=== PATIENT | female | born 1985 | race Hispanic/Latino ===

== ENCOUNTER 2018-03-11 19:42 | Emergency (ER) | payer OTHER ==
--- NOTE | 2018-03-11 20:48 | RAD REPORT ---
EXAM DESCRIPTION: CT - Head Brain Wo Cont - 03/11/2018 8:43 pm CLINICAL HISTORY: HEADACHE COMPARISON: No comparisons TECHNIQUE: All CT scans are performed using dose optimization technique as appropriate and may inclu de automated exposure control or mA/KV adjustment according to patient size. FINDINGS: No intracranial hemorrhage, hydrocephalus or extra-axial fluid collection.No areas of brai n edema or evidence of midline shift. The paranasal sinuses and mastoids are clear. The calvarium is intact. IMPRESSION: No acute intracranial abnormality.
--- NOTE | 2018-03-11 21:15 | ER ---
Nurse's Notes [facility] Name: Megan Corley Age: 33 yrs Sex: Female : 1985 Arrival Date: 03/11/2018 Time: 19:43 Bed 18 Private MD: Diagnosis: Headache Presentation: 03/11 20:10 Presenting complaint: Patient states: Reports headache to top of head that started 1 aj hour ago. Patient reports taking Aleve 10 min CONTAINER WASHER. Reports nausea. Transition of care: patient was not received from another setting of care. Onset of symptoms was March 11, 2018. Risk Assessment: Do you want to hurt yourself or someone else? Patient reports no desire to harm self or others. Initial Sepsis Screen: Does the patient meet any 2 criteria? No. Patient's initial sepsis screen is negative. Does the patient have a suspected source of infection? No. Patient's initial sepsis screen is negative. Care prior to arrival: None. 20:10 Method Of Arrival: Ambulatory aj 20:10 Acuity: SCOOBY 3 aj Triage Assessment: 20:11 General: Appears in no apparent distress. uncomfortable, Behavior is calm, cooperative, aj appropriate for age. Pain: Complains of pain in face. Neuro: Level of Consciousness is awake, alert, obeys commands, Oriented to person, place, time, situation, Appropriate for age Kelp Or Seagrass Gatherer are equal bilaterally Moves all extremities. Full function Gait is steady, Speech is normal, Facial symmetry appears normal, Reports headache. Respiratory: Airway is patent Respiratory effort is even, unlabored, Respiratory pattern is regular, symmetrical. GI: Reports nausea. Derm: Skin is intact, is healthy with good turgor, Skin is pink, warm \T\ dry. normal. IMPROVEMENT INTERN: 20:11 LMP N/A - IUD aj Historical: - Allergies: 20:11 No Known Allergies; aj - Home Meds: 20:11 None [Active]; aj - PMHx: 20:11 None; aj - PSHx: 20:11 None; aj - Immunization history:: Adult Immunizations up to date. - Social history:: Smoking status: Patient/guardian denies using tobacco. - Ebola Screening: : Patient negative for fever greater than or equal to 101.5 degrees Fahrenheit, and additional compatible Ebola Virus Disease symptoms Patient denies exposure to infectious person Patient denies travel to an Ebola-affected area in the 21 days before illness onset No symptoms or risks identified at this time. - Family history:: not pertinent. - Hospitalizations: : No recent hospitalization is reported. Screenin:15 Abuse screen: Denies threats or abuse. Nutritional screening: No deficits noted. ea Tuberculosis screening: No symptoms or risk factors identified. Fall Risk None identified. Assessment: 21:15 General: Appears in no apparent distress. Behavior is calm, cooperative, appropriate ea for age. Pain: Complains of pain in top of head Pain does not radiate. Pain currently is 6 out of 10 on a pain scale. Quality of pain is described as aching. Neuro: Level of Consciousness is awake, alert, obeys commands, Oriented to person, place, time, situation. Cardiovascular: Patient's skin is warm and dry. Respiratory: Airway is patent Respiratory effort is even, unlabored, Respiratory pattern is regular, symmetrical. GI: No signs and/or symptoms were reported involving the gastrointestinal system. : No signs and/or symptoms were reported regarding the genitourinary system. EENT: No signs and/or symptoms were reported regarding the EENT system. Derm: Skin is pink, warm \T\ dry. Musculoskeletal: Circulation, motion, and sensation intact. 21:26 Reassessment: Patient and/or family updated on plan of care and expected duration. Pain ea level reassessed. Patient is alert, oriented x 3, equal unlabored respirations, skin warm/dry/pink. Discharge instructions given to patient, verbalized the understanding of instruction. Vital Signs: 20:11 BP 126 / 81; Pulse 87; Resp 16; Temp 98.3; Pulse Ox 99% on R/A; Weight 88.45 kg; Height aj 5 ft. 1 in. (154.94 cm); 21:20 BP 122 / 78; Pulse 80; Resp 18; Temp 98(O); Pulse Ox 99% ; ea 20:11 Body Mass Index 36.84 (88.45 kg, 154.94 cm) aj [place] Coma Score: 21:13 Eye Response: spontaneous(4). Verbal Response: oriented(5). Motor Response: obeys rn commands(6). Total: 15. ED Course: 19:43 Patient arrived in ED. ds1 20:10 Triage completed. aj 20:11 Arm band placed on right wrist. Patient placed in waiting room, Patient notified of aj wait time. CT ordered. 20:[address] via wheelchair. 2 20:42 CT completed. Patient tolerated procedure well. Patient moved back from CT. wi 20:42 CT Head Brain wo Cont In Process Unspecified. EDMS 21:00 Negrito Alvarez MD is Attending Physician. rn 21:15 Oni Luu MD is Referral Physician. rn 21:15 Patient has correct armband on for positive identification. Bed in low position. Call ea light in reach. 21:23 Sarita Anders, RN is Primary Nurse. ea 21:25 No provider procedures requiring assistance completed. Patient did not have IV access ea during this emergency room visit. Administered Medications: No medications were administered Outcome: 21:15 Discharge ordered by . rn 21:25 Discharged to home ambulatory, with family. ea 21:25 Condition: good 21:25 Discharge instructions given to patient, Instructed on discharge instructions, follow up and referral plans. Demonstrated understanding of instructions, follow-up care. 21:27 Patient left the ED. ea Signatures: Dispatcher [employer] EDID Charmaine Curtis, RN Olimpia Butler ds1 Negrito Alvarez MD MD rn Jordan, Nathan nj McGuire, Victoria 2 Sarita Anders, RN TENNILLE to
--- NOTE | 2018-03-11 21:15 | EDPHYS ---
Physician Documentation [facility] Name: Megan Corley Age: 33 yrs Sex: Female : 1985 Arrival Date: 03/11/2018 Time: 19:43 Bed 18 Private MD: ED Physician Negrito Alvarez HPI: 03/11 21:11 This 33 yrs old Unknown Female presents to ER via Ambulatory with complaints of rn Migraine. 21:11 The patient complains of pain to the top of head. The patient describes the headache as rn aching. 21:11 Onset: The symptoms/episode began/occurred 1 hour(s) ago. Severity of symptoms: At its rn worst the pain was moderate, in the emergency department the pain has improved. The patient has experienced similar episodes in the past. Reports gets headaches somewhat frequently, hangs around for a month then goes away, returns in 6months to a year, this one started an hour ago, has improved since arrival, never has had imaging, hasn't seen neurology, no fever/trauma/neck pain or stiffness, no vomiting. . 21:13 Associated signs and symptoms: Pertinent negatives: altered mental status, dizziness, rn fever, neck stiffness, paresthesias, rash, vision changes, vision loss, vomiting, weakness, vertigo. LOCUM TENENS: 20:11 LMP N/A - IUD aj Historical: - Allergies: 20:11 No Known Allergies; aj - Home Meds: 20:11 None [Active]; aj - PMHx: 20:11 None; aj - PSHx: 20:11 None; aj - Immunization history:: Adult Immunizations up to date. - Social history:: Smoking status: Patient/guardian denies using tobacco. - Ebola Screening: : Patient negative for fever greater than or equal to 101.5 degrees Fahrenheit, and additional compatible Ebola Virus Disease symptoms Patient denies exposure to infectious person Patient denies travel to an Ebola-affected area in the 21 days before illness onset No symptoms or risks identified at this time. - Family history:: not pertinent. - Hospitalizations: : No recent hospitalization is reported. ROS: 21:13 Constitutional: Negative for fever, chills, and weight loss, Eyes: Negative for injury, rn pain, redness, and discharge, Neck: Negative for injury, pain, and swelling, Cardiovascular: Negative for chest pain, palpitations, and edema, Respiratory: Negative for shortness of breath, cough, wheezing, and pleuritic chest pain, Abdomen/GI: Negative for abdominal pain, vomiting, diarrhea, and constipation, : Negative for injury, bleeding, discharge, and swelling, MS/Extremity: Negative for injury and deformity, Skin: Negative for injury, rash, and discoloration, Neuro: Negative for weakness, numbness, tingling, and seizure. Exam: 21:13 Constitutional: This is a well developed, well nourished patient who is awake, alert, rn and in no acute distress. Head/Face: Normocephalic, atraumatic. Eyes: Pupils equal round and reactive to light, extra-ocular motions intact. Lids and lashes normal. Conjunctiva and sclera are non-icteric and not injected. Cornea within normal limits. Periorbital areas with no swelling, redness, or edema. ENT: MMM, no oral lesions Neck: Trachea midline, no thyromegaly or masses palpated, and no cervical lymphadenopathy. Supple, full range of motion without nuchal rigidity, or vertebral point tenderness. No Meningismus. Skin: Warm, dry with normal turgor. Normal color with no rashes, no lesions, and no evidence of cellulitis. MS/ Extremity: Pulses equal, no cyanosis. Neurovascular intact. Full, normal range of motion. Equal circumference. Neuro: Awake and alert, GCS 15, oriented to person, place, time, and situation. Cranial nerves II-XII grossly intact. Motor strength 5/5 in all extremities. Sensory grossly intact. Cerebellar exam normal. Normal gait. Vital Signs: 20:11 BP 126 / 81; Pulse 87; Resp 16; Temp 98.3; Pulse Ox 99% on R/A; Weight 88.45 kg; Height aj 5 ft. 1 in. (154.94 cm); 21:20 BP 122 / 78; Pulse 80; Resp 18; Temp 98(O); Pulse Ox 99% ; ea 20:11 Body Mass Index 36.84 (88.45 kg, 154.94 cm) aj [place] Coma Score: 21:13 Eye Response: spontaneous(4). Verbal Response: oriented(5). Motor Response: obeys rn commands(6). Total: 15. MDM: 21:00 Patient medically screened. rn 21:13 Differential diagnosis: cluster headache, hypertensive headache, migraine, neoplasm, rn tension headache, vasomotor headache. Data reviewed: vital signs, nurses notes, radiologic studies, CT scan, and as a result, I will discharge patient. Counseling: I had a detailed discussion with the patient and/or guardian regarding: the historical points, exam findings, and any diagnostic results supporting the discharge/admit diagnosis, radiology results, the need for outpatient follow up, to return to the emergency department if symptoms worsen or persist or if there are any questions or concerns that arise at home. Special discussion: I discussed with the patient/guardian in detail that at this point there is no indication for admission to the hospital. It is understood, however, that if the symptoms persist or worsen the patient needs to return immediately for re-evaluation. Based on the history and exam findings, there is no indication for further emergent testing or inpatient evaluation. I discussed with the patient/guardian the need to see the neurologist for further evaluation of the symptoms. 03/11 20:12 Order name: CT Head Brain wo Cont; Complete Time: 21:01 aj Administered Medications: No medications were administered Disposition: 03/11/18 21:15 Discharged to Home. Impression: Headache. - Condition is Stable. - Discharge Instructions: General Headache Without Cause, Migraine Headache. - Medication Reconciliation Form, Thank You Letter, Antibiotic Education, Prescription Opioid Use form. - Follow up: Oni Luu MD; When: As needed; Reason: Recheck today's complaints, Re-evaluation by your physician. - Problem is an ongoing problem. - Symptoms have improved. Signatures: Dispatcher [employer] EDCharmaine Adamson RN RN aj Nieto, Roman, MD MD rn Antunez, Elena, RN RN ea Corrections: (The following items were deleted from the chart) 21:15 21:15 03/11/2018 21:15 Discharged to Home. Impression: Headache. Condition is Stable. rn Forms are Medication Reconciliation Form, Thank You Letter, Antibiotic Education, Prescription Opioid Use. Follow up: Private Physician; When: As needed; Reason: Recheck today's complaints, Re-evaluation by your physician. Problem is an ongoing problem. Symptoms have improved. rn 21:27 21:15 03/11/2018 21:15 Discharged to Home. Impression: Headache. Condition is Stable. ea Forms are Medication Reconciliation Form, Thank You Letter, Antibiotic Education, Prescription Opioid Use. Follow up: Oni Luu; When: As needed; Reason: Recheck today's complaints, Re-evaluation by your physician. Problem is an ongoing problem. Symptoms have improved. rn
== END 2018-03-11 21:27 | disposition home or self-care (01) ==
LOC: ER 19:42
DX: R51 Headache (principal)
CPT/HCPCS: 70450; 99284

== ENCOUNTER 2020-11-19 14:11 | Inpatient (IN) | payer OTHER, SELFPAY ==
[2020-11-19 15:39] LABS: Absolute Lymphocytes (CBC) 0.4 K/uL (0.7-4.9); Basophils % 0.4 % (0-1.3); Hematocrit 38.1 % (36.0-45.0); Lymphocytes % 5.8 % (15.3-44.8); MPV 8.5 fL (7.6-11.3); RBC Red Blood Cell Count 4.32 M/uL (3.86-4.86)
[2020-11-19] MEDS ORDERED: IPRATROPIUM BROM 0.5MG/2.5ML ONE (15:48)
[2020-11-19] MEDS ORDERED: ALBUTEROL 2.5 MG/3 ML NEB SOL ONE (15:48)
[2020-11-19] MEDS ORDERED: ONDANSETRON 4 MG/2 ML VIAL ONE (15:48)
[2020-11-19] MEDS ORDERED: NA CHLORIDE 0.9% 1,000 ML ONE ×2 (15:48→17:43)
[2020-11-19] MEDS ORDERED: METHYLPREDNISOLONE 125 MG INJ ONE (15:48)
[2020-11-19 15:52] LABS: Protime INR 1.34
[2020-11-19 16:16] LABS: ALT/SGPT 63 U/L (12-78); AST/SGOT 68 U/L (15-37); Albumin 2.8 g/dL (3.4-5.0); Alkaline Phosphatase 125 U/L (45-117); BUN Blood Urea Nitrogen 6 mg/dL (7-18); Bicarbonate 27 mmol/L (21-32); Bilirubin Direct 0.4 mg/dL (0-0.2); Bilirubin Total 1.1 mg/dL (0.2-1.0); Glucose Level 113 mg/dL (74-106); Lipase 81 U/L (73-393); Potassium 3.4 mmol/L (3.5-5.1); Protein, Total 7.3 g/dL (6.4-8.2); Sodium Level 136 mmol/L (136-145); Troponin (Emerg Dept Use Only) < 0.02 ng/mL (0.0-0.045)
[2020-11-19 16:30] LABS: Ferritin 570.6 ng/mL (8-388)
--- NOTE | 2020-11-19 16:56 | RAD REPORT ---
EXAM DESCRIPTION: RAD - Chest Single View - 11/19/2020 3:50 pm CLINICAL HISTORY: SOBCOVID positive COMPARISON: None TECHNIQUE: AP portable chest image was obtained 11/19/2020 3:50 pm . FINDINGS: Lung volumes are low and there is substantial respiratory motion degradation. Bilateral ai rspace opacification is present. This bilateral pneumonia pattern is commonly seen with COVID-19 pneu monia. Trachea midline. Heart and vasculature are normal. No measurable pleural effusion and no pneum othorax. No acute bony abnormality seen. No acute aortic findings suspected. IMPRESSION: Bilateral COVID-19 pneumonia
[2020-11-19 17:05] LABS: Urine Blood 1+ (Negative); Urine Glucose Negative (Negative); Urine Protein Negative (Negative); Urine pH 6.5 (5.0-7.0)
[2020-11-19 17:57] LABS: Urine Bacteria <20 /HPF (<20); Urine RBC <5 /HPF (NONE SEEN)
[2020-11-19 18:04] LABS: Arterial Blood Carboxyhemoglob 1.2 % (0-1.5); Blood Gas Oxyhemoglobin 90.6 % (94-97); Blood O2 Saturation 92.5 % (92-98.5)
--- NOTE | 2020-11-19 18:44 | ER ---
Nurse's Notes [facility] Name: Megan Corley Age: 35 yrs Sex: Female : 1985 Arrival Date: 11/19/2020 Time: 14:12 Bed 25 Private MD: Diagnosis: Pneumonia due to SARS-associated coronavirus Presentation: 11/19 14:49 Chief complaint: Patient states: Covid+ 11/14/2020. S/S started 11/12/2020. Symptoms ca1 getting worse, cough, congestion, chills, N/V/D, fever, headaches. SOB getting worse. Coronavirus screen: Client denies travel out of the [place] in the last 14 days. Client reports previous positive COVID test result. Date of collection: November 14, 2020 Staff notified of need for isolation. Ebola Screen: Patient negative for fever greater than or equal to 101.5 degrees Fahrenheit, and additional compatible Ebola Virus Disease symptoms Patient denies exposure to infectious person. Patient denies travel to an Ebola-affected area in the 21 days before illness onset. No symptoms or risks identified at this time. Initial Sepsis Screen: Does the patient meet any 2 criteria? RR > 20 per min. HR > 90 bpm. Yes Does the patient have a suspected source of infection? Yes: Productive cough/pneumonia. Risk Assessment: Do you want to hurt yourself or someone else? Patient reports no desire to harm self or others. Onset of symptoms was November 19, 2020. 14:49 Method Of Arrival: Wheelchair ca1 14:49 Acuity: CSOOBY 2 ca1 Historical: - Allergies: 14:53 No Known Allergies; ca1 - Home Meds: 14:53 None [Active]; ca1 - PMHx: 14:53 None; ca1 - PSHx: 14:53 None; ca1 - Immunization history:: Client reports having NOT received the Covid vaccine. Flu vaccine is not up to date. - Social history:: Smoking status: Patient denies any tobacco usage or history of. Screenin:09 Abuse screen: Denies threats or abuse. Denies injuries from another. Nutritional zb screening: No deficits noted. Tuberculosis screening: No symptoms or risk factors identified. Fall Risk None identified. Assessment: 15:30 General: Appears distressed, uncomfortable, Reports chills for 2-3 days, fever for > 3 zb days, feeling ill for > 3 days, fatigue for >3 days. Neuro: Level of Consciousness is awake, alert, obeys commands, Oriented to person, place, time, situation. Cardiovascular: Reports fatigue, lightheadedness, nausea, shortness of breath, syncope, Capillary refill < 3 seconds in bilateral fingers Patient's skin is warm and dry. Respiratory: Airway is patent Respiratory effort is even, unlabored, Respiratory pattern is tachypnea Breath sounds are diminished bilaterally. Onset: The symptoms/episode began/occurred gradually, the patient has moderate shortness of breath. GI: Abdomen is round non-distended, Bowel sounds present X 4 quads. Reports diarrhea, nausea. : No signs and/or symptoms were reported regarding the genitourinary system. EENT: Oral mucosa is moist. Throat is clear. Derm: Skin is intact, is healthy with good turgor, Skin is diaphoretic, Skin is pale, Skin temperature is hot. Musculoskeletal: Circulation, motion, and sensation intact. Range of motion: intact in all extremities. 16:17 Reassessment: Patient appears in no apparent distress at this time. Patient and/or zb family updated on plan of care and expected duration. Pain level reassessed. notified ECP of blood pressure. will wait to see if bolus adjust blood pressure. no new orders at this time. patient remains on neb tx at this time. will continue to monitor. 16:40 Reassessment: patient desating on NC changed to non-rebreather. zb 17:40 Reassessment: patient blood pressure low notified ECP. addition bolus ordered. zb 18:22 Reassessment: RT applying high flow on patient. zb 18:25 Reassessment: 40 L and 100% on High Flow. zb 19:00 Reassessment: hospitalist at bedside. Vital Signs: 14:49 BP 93 / 61; Pulse 114; Resp 22 S; Temp 100.1(O); Pulse Ox 86% on R/A; Weight 88.45 kg; ca1 Height 5 ft. 1 in. (154.94 cm) (R); Pain 2/10; 16:05 BP 90 / 47; Pulse 101; Resp 27; Pulse Ox 95% on 15% Nebulizer Mask; Pain 0/10; zb 17:29 BP 88 / 52; Pulse 105; Resp 30; Temp 98.9(O); Pulse Ox 95% on 15% Non-rebreather mask; zb 17:43 BP 87 / 47; Pulse 100; Resp 31; Pulse Ox 98% on 15% Non-rebreather mask; zb 18:23 BP 92 / 52; Pulse 98; Resp 30; Pulse Ox 96% 100% ; zb 19:00 BP 93 / 54; Pulse 93; Resp 28; Pulse Ox 96% 100% ; zb 19:41 BP 96 / 52; Pulse 87; Resp 25; Pulse Ox 95% 100% ; zb 14:49 Body Mass Index 36.84 (88.45 kg, 154.94 cm) ca1 ED Course: 14:12 Patient arrived in ED. as 14:52 Triage completed. ca1 14:53 Arm band placed on right wrist. ca1 14:56 Gómez Lua NP is PHCP. pm1 14:57 Genesis Watkins MD is Attending Physician. pm1 15:15 Inserted saline lock: 20 gauge in left antecubital area, using aseptic technique. Blood zb collected. 15:23 Cyndi Rawls, RN is Primary Nurse. zb 15:30 Patient has correct armband on for positive identification. Placed in gown. Bed in low zb position. Call light in reach. Side rails up X 1. Adult w/ patient. nuclear monitoring technician on. Pulse ox on. NIBP on. Door closed. Noise minimized. Verbal reassurance given. 15:40 Initial lab(s) drawn, by me, sent to lab. First set of blood cultures drawn Second set zb of blood cultures drawn by me, EKG done, by ED staff, reviewed by Gómez Lua NP. 15:50 CXR XRAY In Process Unspecified. EDMS 17:17 Radiology exam delayed due to patient receiving breathing treatment at this time. RN mw3 states that the pt's O2 sat dropped, informed MD, waiting for RT to do high flow )2 and then see if the pt can be put on non-rebreather for CT scan. 18:43 Fei Alvarez MD is Hospitalizing Provider. pm1 Administered Medications: 15:43 Drug: NS 0.9% 1000 ml Route: IV; Rate: 1000 ml; Site: left antecubital; zb 16:20 Follow up: Response: No adverse reaction; IV Status: Completed infusion; IV Intake: zb 1000ml 15:43 Drug: Zofran (Ondansetron) 4 mg Route: IVP; Site: left antecubital; zb 20:06 Follow up: Response: No adverse reaction; Nausea is decreased zb 15:43 Drug: SOLU-Medrol (methylPrednisoLONE) 125 mg Route: IVP; Site: left antecubital; zb 16:20 Follow up: Response: No adverse reaction zb 16:00 Drug: Albuterol - atroVENT (ipratropium) (3:1) (2.5 mg - 0.5 mg) 3 ml Route: Nebulizer; zb 16:20 Follow up: Response: No adverse reaction; No change in condition zb 17:28 Drug: NS 0.9% 1000 ml Route: IV; Rate: 125 ml/hr; Site: left antecubital; zb 20:06 Follow up: Response: No adverse reaction; IV Status: Infusion continued upon admission; zb IV Intake: 250ml 17:42 Drug: NS 0.9% 1000 ml Route: IV; Rate: 1000 ml; Site: left antecubital; zb 20:01 Follow up: Response: No adverse reaction; IV Status: Completed infusion; IV Intake: zb 1850ml Intake: 16:20 IV: 1000ml; Total: 1000ml. zb 20:01 IV: 1850ml; Total: 2850ml. zb 20:06 IV: 250ml; Total: 3100ml. zb Outcome: 18:43 Decision to Hospitalize by Provider. pm1 11/20 01:10 Patient left the ED. mw2 Signatures: Dispatcher [employer] EDMS Mag Galvan Patrick, NP MEDICAL RECORD LIBRARIAN pm1 Jose G Redman mw2 Marika Ladd mw3 Pallavi Kaye RN RN ca1 Cyndi Rawls RN RN zb Corrections: (The following items were deleted from the chart) 11/19 14:52 14:49 Initial Sepsis Screen: Does the patient meet any 2 criteria? No. Patient's ca1 initial sepsis screen is negative. Does the patient have a suspected source of infection? No. Patient's initial sepsis screen is negative. ca1 14:52 14:49 BP 93 / 61; Pulse 114bpm; Resp 20bpm; Pulse Ox 86% RA; Temp 100.1F Oral; 88.45 ca1 kg; Height 5 ft. 1 in. Reported; BMI: 36.8; Pain 2/10; ca1 17:27 14:49 Coronavirus screen: Client denies travel out of the [place] in the last 14 days. ca1 Client reports previous positive COVID test result. Date of collection: November 14, 2020 ca1 20:06 20:02 Response: No adverse reaction; No change in condition zb zb
--- NOTE | 2020-11-19 18:44 | EDPHYS ---
Physician Documentation [facility] Name: Megan Corley Age: 35 yrs Sex: Female : 1985 Arrival Date: 11/19/2020 Time: 14:12 Bed 25 Private MD: ED Physician Genesis Watkins HPI: 11/19 15:06 This 35 yrs old Female presents to ER via Wheelchair with complaints of Cough, pm1 Congestion, Shortness Of Breath - covid+. 15:06 The patient has shortness of breath at rest. Onset: The symptoms/episode began/occurred pm1 1 week(s) ago. Duration: The symptoms are continuous, and are steadily getting worse. The patient's shortness of breath is aggravated by exertion. Associated signs and symptoms: Pertinent positives: Cough, Fever, N/V/D, Headache, Chest pain. Severity of symptoms: in the emergency department the symptoms are worse. The patient has not experienced similar symptoms in the past. Patient diagnosed with COVID on 11/14 with shortness breath worsening. Chest present with deep breathing and coughing. Historical: - Allergies: 14:53 No Known Allergies; ca1 - Home Meds: 14:53 None [Active]; ca1 - PMHx: 14:53 None; ca1 - PSHx: 14:53 None; ca1 - Immunization history:: Client reports having NOT received the Covid vaccine. Flu vaccine is not up to date. - Social history:: Smoking status: Patient denies any tobacco usage or history of. ROS: 15:06 Eyes: Negative for injury, pain, redness, and discharge, ENT: Negative for injury, pm1 pain, and discharge, Neck: Negative for injury, pain, and swelling. 15:06 Back: Negative for injury and pain, : Negative for injury, bleeding, discharge, and swelling, MS/Extremity: Negative for injury and deformity, Skin: Negative for injury, rash, and discoloration, Neuro: Negative for headache, weakness, numbness, tingling, and seizure. 15:06 Constitutional: Positive for body aches, chills, fever. 15:06 Cardiovascular: Positive for chest pain, with cough. 15:06 Respiratory: Positive for cough, shortness of breath. 15:06 Abdomen/GI: Positive for nausea, vomiting, and diarrhea, Negative for abdominal pain. Exam: 15:06 Head/Face: Normocephalic, atraumatic. pm1 15:06 Eyes: Pupils equal round and reactive to light, extra-ocular motions intact. Lids and lashes normal. Conjunctiva and sclera are non-icteric and not injected. Cornea within normal limits. Periorbital areas with no swelling, redness, or edema. ENT: Nares patent. No nasal discharge, no septal abnormalities noted. Tympanic membranes are normal and external auditory canals are clear. Oropharynx with no redness, swelling, or masses, exudates, or evidence of obstruction, uvula midline. Mucous membranes moist. Neck: Trachea midline, no thyromegaly or masses palpated, and no cervical lymphadenopathy. Supple, full range of motion without nuchal rigidity, or vertebral point tenderness. No Meningismus. 15:06 Back: No spinal tenderness. No costovertebral tenderness. Full range of motion. Skin: Warm, dry with normal turgor. Normal color with no rashes, no lesions, and no evidence of cellulitis. MS/ Extremity: Pulses equal, no cyanosis. Neurovascular intact. Full, normal range of motion. 15:06 Constitutional: The patient appears alert, awake, comfortable, non-diaphoretic, non-toxic, well developed, well hydrated, well groomed, well nourished, obviously ill. 15:06 Chest/axilla: Inspection: normal, Palpation: tenderness, of the mid-sternal area. 15:06 Cardiovascular: Rate: tachycardic, Rhythm: regular, Pulses: no pulse deficits are appreciated. 15:06 Respiratory: mild respiratory distress is noted, Respirations: tachypnea, Breath sounds: bronchial sounds, are heard diffusely. 15:06 Abdomen/GI: Inspection: abdomen appears normal, Palpation: abdomen is soft and non-tender, in all quadrants. 15:06 Neuro: Exam negative for acute changes, Orientation: is normal, Mentation: is normal, Motor: is normal, moves all fours. Vital Signs: 14:49 BP 93 / 61; Pulse 114; Resp 22 S; Temp 100.1(O); Pulse Ox 86% on R/A; Weight 88.45 kg; ca1 Height 5 ft. 1 in. (154.94 cm) (R); Pain 2/10; 16:05 BP 90 / 47; Pulse 101; Resp 27; Pulse Ox 95% on 15% Nebulizer Mask; Pain 0/10; zb 17:29 BP 88 / 52; Pulse 105; Resp 30; Temp 98.9(O); Pulse Ox 95% on 15% Non-rebreather mask; zb 17:43 BP 87 / 47; Pulse 100; Resp 31; Pulse Ox 98% on 15% Non-rebreather mask; zb 18:23 BP 92 / 52; Pulse 98; Resp 30; Pulse Ox 96% 100% ; zb 19:00 BP 93 / 54; Pulse 93; Resp 28; Pulse Ox 96% 100% ; zb 19:41 BP 96 / 52; Pulse 87; Resp 25; Pulse Ox 95% 100% ; zb 14:49 Body Mass Index 36.84 (88.45 kg, 154.94 cm) ca1 MDM: 15:06 Patient medically screened. pm1 16:59 ED course: Requested Hi-Flow Os instead of Bipap for the patient. pm1 18:42 Data reviewed: vital signs. pm1 20:16 ED course: Pending CT chest. Contacted Santino and informed that it was canceled. pm1 Informed him that I want the CT because d-dimer is elevated. 11/19 14:58 Order name: Blood Culture Adult (2) pm11/19 14:58 Order name: BMP pm11/19 14:58 Order name: C-Reactive Protein pm11/19 14:58 Order name: CBC with Diff pm11/19 14:58 Order name: D-Dimer pm11/19 14:58 Order name: Ferritin pm11/19 14:58 Order name: Flu pm11/19 14:58 Order name: Lactate pm11/19 14:58 Order name: LFT's pm11/19 14:58 Order name: Lipase pm11/19 14:58 Order name: PT-INR pm11/19 14:58 Order name: Ptt, Activated; Complete Time: 16:18 pm11/19 14:58 Order name: Strep; Complete Time: 17:17 pm11/19 14:58 Order name: Troponin (emerg Dept Use Only); Complete Time: 16:45 pm11/19 14:58 Order name: Urine Microscopic Only; Complete Time: 18:31 pm1 11/19 14:58 Order name: Blood Culture EDMS 11/19 14:58 Order name: Basic Metabolic Panel; Complete Time: 16:45 EDMS 11/19 14:59 Order name: C-Reactive Protein; Complete Time: 16:45 EDMS 11/19 14:59 Order name: CBC with Automated Diff; Complete Time: 15:50 EDMS 11/19 14:59 Order name: D-Dimer; Complete Time: 16:18 EDMS 11/19 14:59 Order name: Ferritin; Complete Time: 16:45 EDMS 11/19 14:59 Order name: Influenza Screen (A ; Complete Time: 17:17 EDMS 11/19 14:59 Order name: Lactate; Complete Time: 16:04 EDMS 11/19 14:59 Order name: Liver (Hepatic) Function; Complete Time: 16:45 EDMS 11/19 14:59 Order name: Lipase; Complete Time: 16:45 EDMS 11/19 14:59 Order name: Protime (+INR); Complete Time: 16:18 EDMS 11/19 15:38 Order name: COVID-19 : Document "Date of Symptom Onset" if Symptomatic. aa5 11/19 16:55 Order name: ABG; Complete Time: 18:42 pm1 11/19 14:58 Order name: CXR XRAY; Complete Time: 17:17 pm1 11/19 14:58 Order name: EKG; Complete Time: 14:59 pm1 11/19 14:58 Order name: Cardiac monitoring; Complete Time: 15:44 pm11/19 14:58 Order name: Droplet/Contact Precautions; Complete Time: 15:43 pm11/19 14:58 Order name: EKG - Nurse/Tech; Complete Time: 15:43 pm11/19 14:58 Order name: IV Start; Complete Time: 15:44 pm11/19 14:58 Order name: Labs collected and sent; Complete Time: 15:44 pm11/19 14:58 Order name: O2 Per Protocol; Complete Time: 15:44 pm11/19 14:58 Order name: O2 Sat Monitoring; Complete Time: 15:44 pm11/19 14:58 Order name: Urine Dipstick-Ancillary (obtain specimen); Complete Time: 17:10 pm11/19 16:20 Order name: CT Chest For PE Angio pm1 11/19 16:27 Order name: Urine Test (obtain specimen); Complete Time: 17:13 pm1 11/19 16:57 Order name: Throat Culture EDMS 11/19 17:04 Order name: Urine Dipstick-Ancillary; Complete Time: 17:17 EDMS 11/19 17:14 Order name: Urine --Ancillary (enter results) em1 11/19 17:15 Order name: Urine --Ancillary; Complete Time: 17:38 EDMS 11/20 00:31 Order name: Urinalysis EDMS Administered Medications: 15:43 Drug: NS 0.9% 1000 ml Route: IV; Rate: 1000 ml; Site: left antecubital; zb 16:20 Follow up: Response: No adverse reaction; IV Status: Completed infusion; IV Intake: zb 1000ml 15:43 Drug: Zofran (Ondansetron) 4 mg Route: IVP; Site: left antecubital; zb 20:06 Follow up: Response: No adverse reaction; Nausea is decreased zb 15:43 Drug: SOLU-Medrol (methylPrednisoLONE) 125 mg Route: IVP; Site: left antecubital; zb 16:20 Follow up: Response: No adverse reaction zb 16:00 Drug: Albuterol - atroVENT (ipratropium) (3:1) (2.5 mg - 0.5 mg) 3 ml Route: Nebulizer; zb 16:20 Follow up: Response: No adverse reaction; No change in condition zb 17:28 Drug: NS 0.9% 1000 ml Route: IV; Rate: 125 ml/hr; Site: left antecubital; zb 20:06 Follow up: Response: No adverse reaction; IV Status: Infusion continued upon admission; zb IV Intake: 250ml 17:42 Drug: NS 0.9% 1000 ml Route: IV; Rate: 1000 ml; Site: left antecubital; zb 20:01 Follow up: Response: No adverse reaction; IV Status: Completed infusion; IV Intake: zb 1850ml Disposition: 11/20 18:38 Co-signature as Attending Physician, Genesis Watkins MD. ma2 Disposition: 11/19/20 18:43 Hospitalization ordered by Fei Alvarez for Inpatient Admission. Preliminary diagnosis is Pneumonia due to SARS-associated coronavirus. - Bed requested for Intensive Care Unit. - Status is Inpatient Admission. mw2 - Condition is Stable. - Problem is new. - Symptoms have improved. Signatures: Dispatcher [employer] EDMS Tracie Minor, RN RN Gómez Lua, CANAL LOCK TENDER CHIEF OPERATOR CANAL LOCK TENDER CHIEF OPERATOR pm1 Genesis Watkins MD MD nd2 Jose G Redman mw2 Pallavi Kaye RN [facility] Cyndi Rawls RN RN zb Corrections: (The following items were deleted from the chart) 11/19 16:05 14:58 Hester ordered. pm1 zb 16:58 16:56 BiPap ([employer] Only)+[id number] ordered. EDAR EDMS 19:43 18:43 Hospitalization Ordered by Fei Alvarez MD for Inpatient Admission. Preliminary cg diagnosis is Pneumonia due to SARS-associated coronavirus. Bed requested for Telemetry/MedSurg (Inpatient). Status is Inpatient Admission. Condition is Stable. Problem is new. Symptoms have improved. pm1 23:35 19:43 11/19/2020 18:43 Hospitalization Ordered by Fei Alvarez MD for Inpatient cg Admission. Preliminary diagnosis is Pneumonia due to SARS-associated coronavirus. Bed requested for [facility] ER HOLD. Status is Inpatient Admission. Condition is Stable. Problem is new. Symptoms have improved. 11/20 01:10 11/19 23:35 11/19/2020 18:43 Hospitalization Ordered by Fei Alvarez MD for Inpatient mw2 Admission. Preliminary diagnosis is Pneumonia due to SARS-associated coronavirus. Bed requested for Intensive Care Unit. Status is Inpatient Admission. Condition is Stable. Problem is new. Symptoms have improved. cg
[2020-11-19 20:30] VITALS: BMI 36.8
[2020-11-19] MEDS ORDERED: METHYLPREDNISOLONE 40 MG INJ ONE (21:18)
[2020-11-19] MEDS ORDERED: ASCORBIC ACID 500 MG TABLET ONE (21:18)
[2020-11-19] MEDS ORDERED: APIXABAN 5 MG TABLET ONE (21:18)
[2020-11-19] MEDS ORDERED: BENZONATATE 100 MG CAP PO ONE (21:19)
[2020-11-19] MEDS: BENZONATATE 100 MG CAP PO PRN (21:21)
[2020-11-19] MEDS: ASCORBIC ACID 500 MG TABLET PO SCH (21:22)
[2020-11-19] MEDS: METHYLPREDNISOLONE 40 MG INJ IV SCH (21:22)
[2020-11-19] MEDS: APIXABAN 5 MG TABLET PO SCH (21:22)
--- NOTE | 2020-11-19 21:27 | P.HP ---
Certification for Inpatient Patient admitted to: Inpatient With expected LOS: >2 Midnights Patient will require the following post-hospital care: None Practitioner: I am a practitioner with admitting privileges, knowledge of patient current condition, hospital course, and medical plan of care. Services: Services provided to patient in accordance with Admission requirements found in Title 42 Section 412.3 of the Code of Federal Regulations Patient History Date of Service: 11/19/20 Reason for admission: COVID-19 pneumonia History of Present Illness: 35-year-old otherwise healthy female presents emergency department for shortness of breath. Patient reports testing positive for Eldridge virus on 11/14/2020 but began feeling ill on 11/12/2020. Upon arrival to the emergency department patient is hypoxic, labs significant for potassium 3.4 ferritin 570 CRP 212 T bili 1.1 d bili 0.4 AST 68 D-dimer 813 chest x-ray demonstrates bilateral COVID pneumonia. Patient requiring high concentrations of oxygen already at this time, is currently on high-flow nasal cannula at 100% FiO2, saturating around 94% at this time. Case was discussed with pulmonology, will admit with high-dose steroids, full-dose anticoagulation. Allergies No Known Allergies Allergy (Unverified 11/19/20 20:28) Home Medications: NK [No Home Meds] 11/19/20 - Past Medical/Surgical History -: none -: Bunion Psychosocial/ Personal History: Patient is self employed, lives with family - Family History Father -: Diabetes - Social History Smoking Status: Never smoker Alcohol use: No CD- Drugs: No Caffeine use: No Place of Residence: Home Review of Systems 10-point ROS is otherwise unremarkable Respiratory: Cough, Dry, Shortness of Breath, SOB with Excertion Physical Examination - Physical Exam General: Alert, In no apparent distress HEENT: Atraumatic, PERRLA, Mucous membr. moist/pink, EOMI, Sclerae nonicteric Neck: Supple, 2+ carotid pulse no bruit, No LAD, Without JVD or thyroid abnormality Respiratory: Diminished, Other (Tachypneic, dyspnea, increased respiratory effort) Cardiovascular: Regular rate/rhythm, Normal S1 S2 Gastrointestinal: Normal bowel sounds, No tenderness Musculoskeletal: No tenderness Integumentary: No rashes Neurological: Normal gait, Normal speech, Normal strength at 5/5 x4 extr, Normal tone, Normal affect Lymphatics: No axilla or inguinal lymphadenopathy - Studies Laboratory Data (last 24 hrs) 11/19/20 15:19: PT 15.5 H, INR 1.34, APTT 34.5 11/19/20 15:19: WBC 7.30, Hgb 12.9, Hct 38.1, Plt Count 185 11/19/20 15:19: Sodium 136, Potassium 3.4 L, BUN 6 L, Creatinine 0.68, Glucose 113 H, Total Bilirubin 1.1 H, AST 68 H, ALT 63, Alkaline Phosphatase 125 H, Lipase 81 Microbiology Data (last 24 hrs): 11/19/20 15:54 Throat Group A Streptococcus Rapid Screen - Final 11/19/20 15:54 Nasopharnyx Influenza Type A Antigen Screen - Final 11/19/20 15:54 Nasopharnyx Influenza Type B Antigen Screen - Final Assessment and Plan - Plan Assessment Acute hypoxic respiratory failure secondary to bilateral COVID-19 pneumonia Plan Acute hypoxic respiratory failure secondary to bilateral COVID-19 pneumonia : Pulmonology consulted, continue with high-dose steroids, full-dose anticoagulation with Eliquis, oral supplements, ivermectin. Supplemental oxygen as needed titrate saturations greater than 93%. Anticipate hospitalization greater than 72 hr. Appreciate further input from pulmonology. Discharge Plan: Home Plan to discharge in: Greater than 2 days - Advance Directives Does patient have a Living Will: No Does patient have a Durable POA for Healthcare: No - Code Status/Comfort Care Code Status Assessed: Yes (Full code) Critical Care: No Time Spent Managing Pts Care (In Minutes): 55
[2020-11-19] MEDS: HYDROCODONE/CHLORPHEN 5 ML/OSYR PO PRN (23:24)
[2020-11-19] MEDS ORDERED: HYDROCODONE/CHLORPHEN 5 ML/OSYR ONE (23:41)
[2020-11-20] MEDS: ACETAMINOPHEN 500 MG TAB PO PRN (00:04)
[2020-11-20] MEDS ORDERED: ACETAMINOPHEN 500 MG TAB ONE (00:23)
[2020-11-20 00:30] LABS: Urine Appearance CLEAR (Clear); Urine Bilirubin NEGATIVE (Negataive); Urine Blood TRACE (Negative); Urine Color YELLOW (Yellow); Urine Glucose NEGATIVE (Negative); Urine Protein NEGATIVE (Negative); Urine pH 7.5 (5.0-7.0)
[2020-11-20 00:31] LABS: Urine Microscopic Reflex ORDER UMIC
[2020-11-20 01:38] LABS: Urine Bacteria <20 /HPF (<20); Urine RBC <5 /HPF (NONE SEEN)
[2020-11-20] MEDS ORDERED: NA CHLORIDE 0.9% 500 ML IV ONE (01:41)
[2020-11-20] MEDS ORDERED: NA CHLORIDE 0.9% 500 ML ONE (02:15)
[2020-11-20 05:20] LABS: Absolute Lymphocytes (CBC) 0.5 K/uL (0.7-4.9); Hematocrit 33.3 % (36.0-45.0); Lymphocytes % 10.3 % (15.3-44.8); MPV 8.8 fL (7.6-11.3); RBC Red Blood Cell Count 3.74 M/uL (3.86-4.86)
[2020-11-20 05:54] LABS: ALT/SGPT 47 U/L (12-78); AST/SGOT 40 U/L (15-37); Albumin 2.3 g/dL (3.4-5.0); Alkaline Phosphatase 98 U/L (45-117); BUN Blood Urea Nitrogen 8 mg/dL (7-18); Bicarbonate 25 mmol/L (21-32); Bilirubin Total 0.5 mg/dL (0.2-1.0); Ferritin 501.8 ng/mL (8-388); Glucose Level 145 mg/dL (74-106); Magnesium 2.7 mg/dL (1.8-2.4); Potassium 3.9 mmol/L (3.5-5.1); Protein, Total 6.1 g/dL (6.4-8.2); Sodium Level 141 mmol/L (136-145); Thyroid Stimulating Hormone 0.262 uIU/mL (0.360-3.740)
[2020-11-20] MEDS: ZINC SULFATE 220 MG CAP PO SCH (07:36)
[2020-11-20] MEDS: THIAMINE HCL 100 MG TABLET PO SCH (07:36)
[2020-11-20] MEDS: APIXABAN 5 MG TABLET PO SCH ×2 (07:36→19:26)
[2020-11-20] MEDS: ASCORBIC ACID 500 MG TABLET PO SCH ×4 (07:36→19:26)
[2020-11-20] MEDS: VITAMIN D 1000 UNIT TAB PO SCH (07:36)
[2020-11-20] MEDS: METHYLPREDNISOLONE 40 MG INJ IV SCH (07:39)
[2020-11-20 08:55] LABS: Blood Morphology Comment NOT SEEN (NOT SEEN); Platelet Estimate ADEQ; White Blood Cell Scan OK (OK)
[2020-11-20] MEDS: BENZONATATE 100 MG CAP PO PRN ×2 (09:00→15:18)
[2020-11-20] MEDS: HYDROCODONE/CHLORPHEN 5 ML/OSYR PO PRN ×2 (09:01→19:40)
[2020-11-20] MEDS: IVERMECTIN 3 MG TABLET PO SCH (09:56)
--- NOTE | 2020-11-20 10:36 | P.PN ---
Subjective Date of Service: 11/20/20 Chief Complaint: COVID-19 pneumonia Subjective: Improving (patient reports feeling better this morning, more comfortable with the oxygen. denies n/v/d, no lightheadedness, no dizziness. +cough) Review of Systems 10-point ROS is otherwise unremarkable Physical Examination - Vital Signs Temperature: 97 F Blood Pressure: 77/38 Pulse: 63 Respirations: 25 Pulse Ox (%): 98 - Studies Laboratory Data (last 24 hrs) 11/19/20 15:19: PT 15.5 H, INR 1.34, APTT 34.5 11/19/20 15:19: WBC 7.30, Hgb 12.9, Hct 38.1, Plt Count 185 11/19/20 15:19: Sodium 136, Potassium 3.4 L, BUN 6 L, Creatinine 0.68, Glucose 113 H, Total Bilirubin 1.1 H, AST 68 H, ALT 63, Alkaline Phosphatase 125 H, Lipase 81 Microbiology Data (last 24 hrs): 11/19/20 15:54 Throat Group A Streptococcus Rapid Screen - Final 11/19/20 15:54 Nasopharnyx Influenza Type A Antigen Screen - Final 11/19/20 15:54 Nasopharnyx Influenza Type B Antigen Screen - Final Assessment & Plan Physician Review Additional Text: Physical Exam General: Alert, In no apparent distress HEENT: EOMI, Sclerae nonicteric Respiratory: Diminished bilaterally, nonlabored on HFNC Cardiovascular: Regular rate/rhythm, Normal S1 S2 Gastrointestinal: soft, nontender, nondistended Musculoskeletal: No joint tenderness Integumentary: No rashes Neurological: AAOx3, Normal strength at 5/5 x4 extr Problem List Acute hypoxic respiratory failure secondary to bilateral COVID-19 pneumonia Hypotension Acute hypoxic respiratory failure secondary to bilateral COVID-19 pneumonia -pulm consulted, continue high dose steroids, Eliquis, vitamin supplements, ivermectin -wean o2 as tolerated, currently requiring HFNC FIO2: 100% -trend CRP/ferritin Hypotension -pt reports she is baseline low, denies nausea / lightheadedness / dizziness -without tachycardia -will continue to monitor VTE: eliquis Code: full Dispo: anticipate dc home with O2 in >2 days Time Spent Managing Pts Care (In Minutes): 35
--- NOTE | 2020-11-20 12:15 | P.CNS ---
Date of Consult: 11/20/20 Reason for Consult: Respiratory failure from denise virus pneumonia Chief Complaint: COVID-19 pneumonia History of Present Illness: Patient is 35 years of age admitted with denise virus pneumonia she is very hypoxic acquiring 100% non-rebreather no other medical history/feeling better still very short of breath Allergies No Known Allergies Allergy (Unverified 11/19/20 20:28) Home Medications: NK [No Home Meds] 11/19/20 - Past Medical/Surgical History Diabetic: No -: none -: Bunion Psychosocial/ Personal History: Patient is self employed, lives with family - Family History Father Medical History: Diabetes Mother Medical History: Stroke - Social History Alcohol use: No CD- Drugs: No Caffeine use: No Place of Residence: Home Review of Systems General: Weakness Respiratory: Cough, Shortness of Breath Physical Examination Temp Pulse Resp BP Pulse Ox 97 F 63 28 H 92/50 L 84 L 11/20/20 10:39 11/20/20 11:00 11/20/20 11:00 11/20/20 11:00 11/20/20 11:00 Laboratory Data (last 24 hrs) 11/19/20 15:19: PT 15.5 H, INR 1.34, APTT 34.5 11/19/20 15:19: WBC 7.30, Hgb 12.9, Hct 38.1, Plt Count 185 11/19/20 15:19: Sodium 136, Potassium 3.4 L, BUN 6 L, Creatinine 0.68, Glucose 113 H, Total Bilirubin 1.1 H, AST 68 H, ALT 63, Alkaline Phosphatase 125 H, Lipase 81 - Problems (1) Acute respiratory failure due to severe acute respiratory syndrome coronavirus 2 (SARS-CoV-2) infection Current Visit: Yes Status: Acute Plan: Patient is 35 years of age admitted with respiratory failure from denise virus she is very hypoxic the given her 1 dose of Actemra continue with high-dose steroids and ivermectin patient has chronically low blood pressure history feeling a little better
--- NOTE | 2020-11-20 12:28 | RAD REPORT ---
EXAM DESCRIPTION: CT - Chest For Pe Angio - 11/20/2020 6:27 am CLINICAL HISTORY: The patient is 35 years old and is Female; COVID+ / SYMPTOMS GETTING WORSE TECHNIQUE: Axial computed tomographic angiography images of the chest with intravenous contrast. T his CT exam was performed using one or more of the following dose reduction techniques: automated e xposure control, adjustment of the mA and/or kV according to patient size, and/or use of iterative re construction technique. MIP reconstructed images were created and reviewed. Oblique reformatted images were created and reviewed. DLP: 418 mGy*cm COMPARISON: Chest radiograph of the same day. FINDINGS: LIMITATIONS: Motion limited examination. PULMONARY ARTERIES: Unremarkable. No pulmonary embolism. AORTA: No acute findings. No thoracic aortic aneurysm. LUNGS: Advanced bilateral interstitial opacities, groundglass opacities and scattered bilateral co nsolidations. PLEURAL SPACE: Unremarkable. No significant effusion. No pneumothorax. HEART: Unremarkable. No cardiomegaly. No significant pericardial effusion. No evidence of RV dysfunction. BONES/JOINTS: No acute fracture. No dislocation. SOFT TISSUES: Unremarkable. LYMPH NODES: Unremarkable. No enlarged lymph nodes. IMPRESSION: 1. No pulmonary embolism. 2. Commonly reported imaging features of COVID-19 pneumonia are present. Other processes such as in fluenza pneumonia and organizing pneumonia, as can be seen with drug toxicity and connective tissue d isease, can cause similar imaging pattern. PneTyp Electronically signed by: Jakub Gibbons DO 11/19/2020 11:15 PM CDT Due to temporary technical issues with the PACS/Fluency reporting system, reports are being signed by the in house radiologist without review as a courtesy to ensure prompt reporting. The interpreting r adiologist is fully responsible for the content of the report.
[2020-11-20] MEDS: METHYLPREDNISOLONE 125 MG INJ IV SCH ×2 (13:53→19:26)
[2020-11-20] MEDS ORDERED: NA CHLORIDE 0.9% IV ONE (18:00)
[2020-11-20] MEDS ORDERED: TOCILIZUMAB IV ONE (18:00)
[2020-11-20] MEDS: MELATONIN 5 MG TABLET PO PRN (19:26)
[2020-11-20] MEDS ORDERED: DIPHENHYDRAMINE 25 MG TAB/CAP PO ONE (22:31)
[2020-11-20] MEDS ORDERED: NA CHLORIDE 0.9% 250 ML ONE (22:57)
[2020-11-21 04:41] LABS: Absolute Lymphocytes (CBC) 0.8 K/uL (0.7-4.9); Hematocrit 31.4 % (36.0-45.0); Lymphocytes % 12.4 % (15.3-44.8); MPV 8.4 fL (7.6-11.3); RBC Red Blood Cell Count 3.57 M/uL (3.86-4.86)
[2020-11-21 05:15] LABS: ALT/SGPT 42 U/L (12-78); AST/SGOT 32 U/L (15-37); Albumin 2.2 g/dL (3.4-5.0); Alkaline Phosphatase 84 U/L (45-117); BUN Blood Urea Nitrogen 12 mg/dL (7-18); Bicarbonate 28 mmol/L (21-32); Bilirubin Total 0.4 mg/dL (0.2-1.0); Ferritin 515.7 ng/mL (8-388); Glucose Level 139 mg/dL (74-106); Magnesium 2.7 mg/dL (1.8-2.4); Potassium 4.3 mmol/L (3.5-5.1); Sodium Level 138 mmol/L (136-145)
[2020-11-21] MEDS: BENZONATATE 100 MG CAP PO PRN (07:36)
[2020-11-21] MEDS: ACETAMINOPHEN 500 MG TAB PO PRN (07:36)
[2020-11-21] MEDS: ZINC SULFATE 220 MG CAP PO SCH (07:36)
[2020-11-21] MEDS: ASCORBIC ACID 500 MG TABLET PO SCH ×4 (07:36→20:18)
[2020-11-21] MEDS: THIAMINE HCL 100 MG TABLET PO SCH (07:36)
[2020-11-21] MEDS: APIXABAN 5 MG TABLET PO SCH ×2 (07:36→20:18)
[2020-11-21] MEDS: HYDROCODONE/CHLORPHEN 5 ML/OSYR PO PRN ×2 (07:37→17:44)
[2020-11-21] MEDS: VITAMIN D 1000 UNIT TAB PO SCH (07:37)
[2020-11-21] MEDS: METHYLPREDNISOLONE 125 MG INJ IV SCH ×3 (07:37→20:19)
--- NOTE | 2020-11-21 12:23 | P.PN ---
Subjective Date of Service: 11/21/20 Chief Complaint: COVID-19 pneumonia Subjective: Improving (Patient is improving feeling better) Review of Systems General: Weakness Respiratory: Shortness of Breath Physical Examination - Vital Signs Temperature: 96.7 F Blood Pressure: 141/79 Pulse: 104 Respirations: 19 Pulse Ox (%): 91 - Studies Microbiology Data (last 24 hrs): 11/19/20 15:54 Throat Culture & Sensitivity - Final NORMAL UPPER RESPIRATORY VAIBHAV GROWN. Assessment & Plan - Problems (Diagnosis) (1) Acute respiratory failure due to severe acute respiratory syndrome coronavirus 2 (SARS-CoV-2) infection Current Visit: Yes Status: Acute Plan: Patient is feeling better continue titrate oxygen down status post IV Actemra chemistries reviewed
--- NOTE | 2020-11-21 14:03 | P.PN ---
Subjective Date of Service: 11/21/20 Chief Complaint: COVID-19 pneumonia Patient states she feels better than yesterday. She is maintained on high-flow oxygen. Physical Examination - Vital Signs Temperature: 96.7 F Blood Pressure: 141/79 Pulse: 104 Respirations: 19 Pulse Ox (%): 91 - Physical Exam General: Alert, In no apparent distress, Oriented x3 HEENT: Other (High-flow oxygen) Neck: JVD not distended Respiratory: Other (Nonlabored breathing) Cardiovascular: No edema, Normal S1 S2, Other (Regular and tachycardic.) Gastrointestinal: Normal bowel sounds, Soft and benign, Non-distended Musculoskeletal: No swelling Integumentary: No rashes Neurological: Normal strength at 5/5 x4 extr - Studies Microbiology Data (last 24 hrs): 11/19/20 15:54 Throat Culture & Sensitivity - Final NORMAL UPPER RESPIRATORY VAIBHAV GROWN. Assessment And Plan Physician Review Additional Text: Problem List Acute hypoxic respiratory failure secondary to bilateral COVID-19 pneumonia Hypotension Acute hypoxic respiratory failure secondary to bilateral COVID-19 pneumonia -pulm is following. -status post Actemra. -continue high dose steroids, Eliquis, vitamin supplements, Ivermectin. -wean o2 as tolerated. -monitor inflammatory markers. Hypotension -resolved -pt reports her blood pressure is baseline low, denies nausea / lightheadedness / dizziness -she is hypertensive today. -continue to monitor VTE: eliquis Code: full
[2020-11-21] MEDS: MELATONIN 5 MG TABLET PO PRN (20:18)
[2020-11-21] MEDS ORDERED: DIPHENHYDRAMINE 25 MG TAB/CAP PO ONE (23:54)
[2020-11-22] MEDS: BENZONATATE 100 MG CAP PO PRN ×2 (00:07→08:02)
[2020-11-22] MEDS ORDERED: DIPHENHYDRAMINE 25 MG TAB/CAP ONE (00:25)
[2020-11-22 05:31] LABS: Absolute Lymphocytes (CBC) 0.7 K/uL (0.7-4.9); Basophils % 0.1 % (0-1.3); Hematocrit 35.3 % (36.0-45.0); Lymphocytes % 11.7 % (15.3-44.8); MPV 8.5 fL (7.6-11.3); RBC Red Blood Cell Count 3.94 M/uL (3.86-4.86)
[2020-11-22 05:46] LABS: ALT/SGPT 71 U/L (12-78); AST/SGOT 59 U/L (15-37); Albumin 2.2 g/dL (3.4-5.0); Alkaline Phosphatase 82 U/L (45-117); BUN Blood Urea Nitrogen 15 mg/dL (7-18); Bicarbonate 30 mmol/L (21-32); Bilirubin Total 0.6 mg/dL (0.2-1.0); Ferritin 373.2 ng/mL (8-388); Glucose Level 126 mg/dL (74-106); Magnesium 2.7 mg/dL (1.8-2.4); Protein, Total 5.9 g/dL (6.4-8.2); Sodium Level 139 mmol/L (136-145)
[2020-11-22] MEDS: ASCORBIC ACID 500 MG TABLET PO SCH ×4 (08:02→20:49)
[2020-11-22] MEDS: THIAMINE HCL 100 MG TABLET PO SCH (08:02)
[2020-11-22] MEDS: ZINC SULFATE 220 MG CAP PO SCH (08:02)
[2020-11-22] MEDS: VITAMIN D 1000 UNIT TAB PO SCH (08:02)
[2020-11-22] MEDS: METHYLPREDNISOLONE 125 MG INJ IV SCH ×3 (08:02→20:49)
[2020-11-22] MEDS: APIXABAN 5 MG TABLET PO SCH ×2 (08:02→20:49)
[2020-11-22] MEDS: IVERMECTIN 3 MG TABLET PO SCH (08:03)
[2020-11-22] MEDS: HYDROCODONE/CHLORPHEN 5 ML/OSYR PO PRN (08:04)
--- NOTE | 2020-11-22 16:13 | P.PN ---
Subjective Date of Service: 11/22/20 Chief Complaint: COVID-19 pneumonia No new complain Oxygen is being weaned down. Physical Examination - Vital Signs Temperature: 96.8 F Blood Pressure: 100/56 Pulse: 76 Respirations: 18 Pulse Ox (%): 92 - Physical Exam General: Alert, In no apparent distress Respiratory: Clear to auscultation bilaterally, Normal air movement Cardiovascular: No edema, Regular rate/rhythm, Normal S1 S2 Gastrointestinal: Soft and benign, Non-distended Musculoskeletal: No swelling Integumentary: No rashes Neurological: Normal strength at 5/5 x4 extr Assessment And Plan Physician Review Additional Text: Problem List Acute hypoxic respiratory failure secondary to bilateral COVID-19 pneumonia Hypotension Acute hypoxic respiratory failure secondary to bilateral COVID-19 pneumonia -pulm is following. -status post Actemra. -continue high dose steroids, Eliquis, vitamin supplements, Ivermectin. -continue to wean o2 as tolerated. -monitor inflammatory markers. Hypotension -resolved -pt reports her blood pressure is baseline low. -continue to monitor VTE: eliquis Code: full
[2020-11-23 05:30] LABS: Absolute Lymphocytes (CBC) 0.9 K/uL (0.7-4.9); Hematocrit 36.5 % (36.0-45.0); Lymphocytes % 12.8 % (15.3-44.8); MPV 8.3 fL (7.6-11.3); RBC Red Blood Cell Count 4.15 M/uL (3.86-4.86)
[2020-11-23 05:45] LABS: ALT/SGPT 299 U/L (12-78); AST/SGOT 122 U/L (15-37); Albumin 2.3 g/dL (3.4-5.0); Alkaline Phosphatase 82 U/L (45-117); BUN Blood Urea Nitrogen 17 mg/dL (7-18); Bicarbonate 29 mmol/L (21-32); Bilirubin Total 0.6 mg/dL (0.2-1.0); Ferritin 352.5 ng/mL (8-388); Glucose Level 127 mg/dL (74-106); Magnesium 2.7 mg/dL (1.8-2.4); Potassium 3.8 mmol/L (3.5-5.1); Protein, Total 5.9 g/dL (6.4-8.2); Sodium Level 139 mmol/L (136-145)
[2020-11-23] MEDS ORDERED: POTASSIUM 25 MEQ EFFERV TAB PO ONE (06:06)
[2020-11-23] MEDS: BENZONATATE 100 MG CAP PO PRN (07:30)
[2020-11-23] MEDS: APIXABAN 5 MG TABLET PO SCH ×2 (07:30→20:39)
[2020-11-23] MEDS: ZINC SULFATE 220 MG CAP PO SCH (07:30)
[2020-11-23] MEDS: THIAMINE HCL 100 MG TABLET PO SCH (07:30)
[2020-11-23] MEDS: ASCORBIC ACID 500 MG TABLET PO SCH ×4 (07:30→20:39)
[2020-11-23] MEDS: HYDROCODONE/CHLORPHEN 5 ML/OSYR PO PRN (07:31)
[2020-11-23] MEDS: VITAMIN D 1000 UNIT TAB PO SCH (07:32)
[2020-11-23] MEDS: METHYLPREDNISOLONE 125 MG INJ IV SCH ×3 (09:14→20:39)
--- NOTE | 2020-11-23 12:21 | P.PN ---
Subjective Date of Service: 11/23/20 Chief Complaint: COVID-19 pneumonia Subjective: Improving (Patient is improving oxygen requirements are declining) Review of Systems General: Weakness Respiratory: Shortness of Breath Physical Examination - Vital Signs Temperature: 96.9 F Blood Pressure: 118/82 Pulse: 50 Respirations: 21 Pulse Ox (%): 98 Assessment & Plan - Problems (Diagnosis) (1) Acute respiratory failure due to severe acute respiratory syndrome coronavirus 2 (SARS-CoV-2) infection Current Visit: Yes Status: Acute Plan: Respiratory failure patient is improving continue to wean down on the oxygen plan to switch her over to nasal cannula vital signs stable was setup for home O2 possible discharge in 1 or 2 days
--- NOTE | 2020-11-23 15:17 | P.PN ---
Subjective Date of Service: 11/23/20 Chief Complaint: COVID-19 pneumonia Patient has no new complain. She remain on high-flow oxygen. FiO2 weaned down to 60% Physical Examination - Vital Signs Temperature: 96.9 F Blood Pressure: 118/82 Pulse: 50 Respirations: 21 Pulse Ox (%): 98 - Physical Exam General: In no apparent distress, Oriented x3 Neck: JVD not distended Respiratory: Other (Nonlabored.) Cardiovascular: No edema, Regular rate/rhythm, Normal S1 S2 Gastrointestinal: Soft and benign, Non-distended Musculoskeletal: No swelling Integumentary: No rashes Neurological: Normal strength at 5/5 x4 extr Assessment And Plan Physician Review Additional Text: Problem List Acute hypoxic respiratory failure secondary to bilateral COVID-19 pneumonia Hypotension Acute hypoxic respiratory failure secondary to bilateral COVID-19 pneumonia -pulm is following. -status post Actemra. -continue high dose steroids, Eliquis, vitamin supplements, Ivermectin. -continue to wean o2 as tolerated. -monitor inflammatory markers. Hypotension -resolved -stable blood pressure -continue to monitor VTE: eliquis Code: full
--- NOTE | 2020-11-23 19:16 | RAD REPORT ---
EXAM DESCRIPTION: US - Liver Only - 11/23/2020 6:59 pm CLINICAL HISTORY: Elevated LFT COMPARISON: No comparisons TECHNIQUE: Sonographic evaluation of the right upper quadrant was performed as a dedicated liver ult rasound study. FINDINGS: No capsule nodularity or focal liver parenchymal lesion seen. Liver echotexture is not out side of range of normal. A minimal fatty infiltration would be possible. Doppler evaluation shows no portal vein abnormality. No biliary tree dilatation. Liver is 14 cm. Spleen is 10 cm with no focal splenic finding. No ascites of the upper abdomen. IMPRESSION: Dedicated liver ultrasound study shows no focal lesion or suspicious finding. Liver echotexture is not outside of normal range. A minimal amount of fatty infiltration is possible.
[2020-11-24 05:38] LABS: Absolute Lymphocytes (CBC) 1.2 K/uL (0.7-4.9); Basophils % 0.2 % (0-1.3); Hematocrit 40.6 % (36.0-45.0); MPV 8.1 fL (7.6-11.3); RBC Red Blood Cell Count 4.64 M/uL (3.86-4.86)
[2020-11-24 06:13] LABS: ALT/SGPT 197 U/L (12-78); AST/SGOT 34 U/L (15-37); Albumin 2.5 g/dL (3.4-5.0); Alkaline Phosphatase 79 U/L (45-117); BUN Blood Urea Nitrogen 17 mg/dL (7-18); Bicarbonate 28 mmol/L (21-32); Bilirubin Total 0.7 mg/dL (0.2-1.0); Ferritin 287.3 ng/mL (8-388); Glucose Level 122 mg/dL (74-106); Magnesium 2.7 mg/dL (1.8-2.4); Potassium 3.9 mmol/L (3.5-5.1); Protein, Total 6.2 g/dL (6.4-8.2); Sodium Level 138 mmol/L (136-145)
[2020-11-24] MEDS: VITAMIN D 1000 UNIT TAB PO SCH (07:28)
[2020-11-24] MEDS: APIXABAN 5 MG TABLET PO SCH ×2 (07:28→20:21)
[2020-11-24] MEDS: BENZONATATE 100 MG CAP PO PRN (07:28)
[2020-11-24] MEDS: THIAMINE HCL 100 MG TABLET PO SCH (07:29)
[2020-11-24] MEDS: HYDROCODONE/CHLORPHEN 5 ML/OSYR PO PRN (07:29)
[2020-11-24] MEDS: ZINC SULFATE 220 MG CAP PO SCH (07:29)
[2020-11-24] MEDS: ASCORBIC ACID 500 MG TABLET PO SCH ×4 (07:29→20:21)
[2020-11-24] MEDS: METHYLPREDNISOLONE 125 MG INJ IV SCH ×2 (07:29→20:21)
[2020-11-24 08:23] LABS: Blood Morphology Comment NOT SEEN (NOT SEEN); Platelet Estimate ADEQ
--- NOTE | 2020-11-24 10:37 | P.PN ---
Subjective Date of Service: 11/24/20 Chief Complaint: COVID-19 pneumonia Subjective: Improving (Improving doing better continue to titrate oxygen down) Review of Systems General: Weakness Respiratory: Shortness of Breath Physical Examination - Vital Signs Temperature: 96.9 F Blood Pressure: 82/65 Pulse: 47 Respirations: 15 Pulse Ox (%): 93 Assessment & Plan - Problems (Diagnosis) (1) Acute respiratory failure due to severe acute respiratory syndrome coronavirus 2 (SARS-CoV-2) infection Current Visit: Yes Status: Acute Plan: Respiratory failure patient is not improving status post Actemra try nasal cannula oxygen possible discharge in 1 or 2 day labs reviewed reduce dose of Solu-Medrol Physician Review Additional Text: Problem List Acute hypoxic respiratory failure secondary to bilateral COVID-19 pneumonia Hypotension Acute hypoxic respiratory failure secondary to bilateral COVID-19 pneumonia -pulm is following. -status post Actemra. -continue high dose steroids, Eliquis, vitamin supplements, Ivermectin. -continue to wean o2 as tolerated. -monitor inflammatory markers. Hypotension -resolved -stable blood pressure -continue to monitor VTE: eliquis Code: full
--- NOTE | 2020-11-24 14:58 | P.PN ---
Subjective Date of Service: 11/24/20 Chief Complaint: COVID-19 pneumonia Patient has no new complain. She is gradually getting better. FiO2 weaned down to 50% and oxygen flow to 25 L per min. Physical Examination - Vital Signs Temperature: 96.9 F Blood Pressure: 82/65 Pulse: 47 Respirations: 15 Pulse Ox (%): 93 - Physical Exam General: Alert, In no apparent distress Neck: JVD not distended Respiratory: Other (Nonlabored breathing) Cardiovascular: No edema, Regular rate/rhythm, Normal S1 S2 Gastrointestinal: Soft and benign, Non-distended Musculoskeletal: No swelling Integumentary: No rashes Neurological: Normal strength at 5/5 x4 extr Assessment And Plan Physician Review Additional Text: Problem List Acute hypoxic respiratory failure secondary to bilateral COVID-19 pneumonia Hypotension Acute hypoxic respiratory failure secondary to bilateral COVID-19 pneumonia -status post Actemra. -continue high dose steroids, Eliquis, vitamin supplements, Ivermectin. -continue to wean o2 as tolerated. -monitor inflammatory markers. Hypotension -resolved -stable blood pressure -continue to monitor VTE: eliquis Code: full
[2020-11-25] MEDS: ASCORBIC ACID 500 MG TABLET PO SCH ×2 (07:25→12:02)
[2020-11-25] MEDS: ZINC SULFATE 220 MG CAP PO SCH (07:25)
[2020-11-25] MEDS: VITAMIN D 1000 UNIT TAB PO SCH (07:25)
[2020-11-25] MEDS: THIAMINE HCL 100 MG TABLET PO SCH (07:25)
[2020-11-25] MEDS: METHYLPREDNISOLONE 125 MG INJ IV SCH (07:26)
[2020-11-25] MEDS: APIXABAN 5 MG TABLET PO SCH (07:26)
[2020-11-25] MEDS: BENZONATATE 100 MG CAP PO PRN (07:26)
[2020-11-25] MEDS: HYDROCODONE/CHLORPHEN 5 ML/OSYR PO PRN (07:26)
[2020-11-25] MEDS ORDERED: POTASSIUM CL SA 10 MEQ TAB PO ONE (09:00)
[2020-11-25 11:28] VITALS: TEMP 96.9
--- NOTE | 2020-11-25 11:47 | P.DS ---
Admission Date: 11/19/20 Discharge Date: 11/25/20 Disposition: ROUTINE DISCHARGE Discharge Condition: FAIR Reason for Admission: COVID-19 pneumonia Consultations: Pulmonary-Dr. Kimble. - Problems (1) Acute respiratory failure with hypoxia Current Visit: Yes Status: Acute (2) Pneumonia due to COVID-19 virus Current Visit: Yes Status: Acute (3) Hypotension Current Visit: Yes Status: Acute Brief History of Present Illness: 35-year-old woman presented to the emergency department with a complaint of shortness of breath. She tested positive for COVID 19 on 11/14/2020. Patient was hypoxic in the ED. Chest x-ray demonstrated bilateral pneumonia. Patient was requiring high-flow oxygen. CTA thorax demonstrated bilateral infiltrate consistent with COVID pneumonia, no pulmonary embolus. The patient was admitted for further management. Hospital Course: Patient admitted to the medical floor and treated for COVID pneumonia with IV steroids, scheduled bronchodilators, IVermectin and vitamin supplementation. She was seen in consultation by pulmonary, she was given a dose of Actemra. Patient respiratory condition improved with treatment. She was weaned off high- flow oxygen to oxygen by nasal cannula and currently tolerating 2-3 L min flow. She has clinically improved and deemed stable for discharge. She is discharged with Eliquis and prednisone. She will follow with Dr. Kimble within 1 week. Vital Signs/Physical Exam: Temp Pulse Resp BP Pulse Ox 96.9 F 52 21 H 82/47 L 94 11/25/20 08:00 11/25/20 08:00 11/25/20 08:00 11/25/20 08:00 11/25/20 08:00 General: Alert, In no apparent distress Respiratory: Other (No labored breathing) Cardiovascular: No edema, Regular rate/rhythm Gastrointestinal: Soft and benign, Non-distended Musculoskeletal: No swelling Integumentary: No rashes Neurological: Normal strength at 5/5 x4 extr Laboratory Data at Discharge: WBC 10.40 K/uL (4.3-10.9) D 11/24/20 05:07 Hgb 13.9 g/dL (12.0-15.0) 11/24/20 05:07 Hct 40.6 % (36.0-45.0) 11/24/20 05:07 Plt Count 373 K/uL (152-406) 11/24/20 05:07 PT 15.5 SECONDS (9.5-12.5) H 11/19/20 15:19 INR 1.34 11/19/20 15:19 APTT 34.5 SECONDS (24.3-36.9) 11/19/20 15:19 Sodium 138 mmol/L (136-145) 11/24/20 05:07 Potassium 3.9 mmol/L (3.5-5.1) 11/24/20 05:07 BUN 17 mg/dL (7-18) 11/24/20 05:07 Creatinine 0.57 mg/dL (0.55-1.3) 11/24/20 05:07 Glucose 122 mg/dL (74-106) H 11/24/20 05:07 Magnesium 2.7 mg/dL (1.8-2.4) H 11/24/20 05:07 Total Bilirubin 0.7 mg/dL (0.2-1.0) 11/24/20 05:07 AST 34 U/L (15-37) 11/24/20 05:07 ALT 197 U/L (12-78) H D 11/24/20 05:07 Alkaline Phosphatase 79 U/L (45-117) 11/24/20 05:07 Lipase 81 U/L (73-393) 11/19/20 15:19 Home Medications: Apixaban [Eliquis] 5 mg PO BID #60 tablet 11/25/20 Ascorbic Acid [Vitamin C*] 500 mg PO QID #120 tablet 11/25/20 Benzonatate [Tessalon Perle*] 100 mg PO TID PRN #30 cap 11/25/20 Cholecalciferol (Vitamin D3) [Vitamin D 1000 Iu Tab*] 4,000 unit PO DAILY #120 tab 11/25/20 Thiamine HCl [Vitamin B-1*] 200 mg PO DAILY #60 tablet 11/25/20 Zinc Sulfate [Zinc Sulfate*] 220 mg PO DAILY #30 cap 11/25/20 predniSONE [Deltasone] 20 mg PO BID #21 tab 11/25/20 New Medications: Apixaban [Eliquis] 5 mg PO BID #60 tablet predniSONE [Deltasone] 20 mg PO BID #21 tab Benzonatate [Tessalon Perle*] 100 mg PO TID PRN #30 cap PRN Reason: Cough Thiamine HCl [Vitamin B-1*] 200 mg PO DAILY #60 tablet Ascorbic Acid [Vitamin C*] 500 mg PO QID #120 tablet Cholecalciferol (Vitamin D3) [Vitamin D 1000 Iu Tab*] 4,000 unit PO DAILY #120 tab Zinc Sulfate [Zinc Sulfate*] 220 mg PO DAILY #30 cap Diet: AHA Activity: Ad izaiah Followup: Berny Kimble MD [ACTIVE - CAN ADMIT] - NONE,NONE [Primary Care Provider] - Time spent managing pt's care (in minutes): 36
[2020-11-25 11:55] VITALS: O2SAT 92
[2020-11-25 14:13] VITALS: BP 88/55
== END 2020-11-25 14:45 | disposition home or self-care (01) | DRG 177 ==
LOC: ER 14:11 → ERHOLD 19:33 → 3RD-ICU 11-20 00:12
PROVIDERS: ADMIT Hospitalist; ATTEND Internal Medicine
PROC: 5A09557 Assistance with Respiratory Ventilation, Greater than 96 Consecutive Hours, Continuous Positive Airway Pressure (ICD-10-PCS; principal; 2020-11-19)
DX: U07.1 COVID-19 (principal); J12.82 Pneumonia due to coronavirus disease 2019; J96.01 Acute respiratory failure with hypoxia; I95.9 Hypotension, unspecified; Z79.01 Long term (current) use of anticoagulants; Z79.52 Long term (current) use of systemic steroids; Z79.899 Other long term (current) drug therapy
CPT/HCPCS: 36415; 71045; 71275; 76705; 80048; 80053; 80076; 81003; 81015; 81025; 82728; 82805; 83605; 83690; 83735; 84439; 84443; 84484; 85025; 85379; 85610; 85730; 86140; 87040; 87070; 87081; 87804; 93005; 94002; 94003; 94660; 94760; 96361; 96374; 96375; 99285; J2405; J2920; J2930; J3262; J7030; J7040; J7050; Q9967